=== PATIENT | female | born 1980 | race African-American/Black ===

== ENCOUNTER 2017-05-05 16:16 | Emergency (ER) | payer BC ==
--- NOTE | 2017-05-05 17:15 | ER Document Report ---
ED Medical Screen (RME) - General Chief Complaint: Nausea/Vomiting/Diarrhea Stated Complaint: VOMITING Time Seen by Provider: 05/05/17 17:12 Mode of Arrival: Ambulatory Information source: Patient Notes: 36-year-old female with a history of colitis that presents today with complaints of two days of diarrhea with associated vomiting. Patient does mention that she recently finished a course of amoxicillin secondary to a dental extraction. Patient denies any fevers. TRAVEL OUTSIDE OF THE [place] IN LAST 30 DAYS: No - Related Data Allergies/Adverse Reactions: No Known Allergies Allergy (Verified 04/02/16 12:47) Past Medical History - General Information source: [facility] Records GI Medical History: Reports: Other - Hx colitis Past Surgical History: Reports: Hx Gynecologic Surgery - uterine cyst, Hx Oral Surgery, Hx Tonsillectomy - Immunizations Hx Diphtheria, Pertussis, Tetanus Vaccination: Yes Review of Systems - Review of Systems Constitutional: denies: Fever Gastrointestinal: See HPI, Diarrhea, Nausea, Vomiting Physical Exam - Vital signs Vitals: Temp Pulse Resp BP Pulse Ox 99.0 F 97 16 147/88 H 98 05/05/17 16:25 05/05/17 16:25 05/05/17 16:25 05/05/17 16:25 05/05/17 16:25 - Respiratory Respiratory status: No respiratory distress Chest status: Nontender Breath sounds: Normal - Cardiovascular Rhythm: Regular Heart sounds: Normal auscultation Murmur: No - Abdominal Inspection: Obese Distension: No distension Bowel sounds: Normal Tenderness: Nontender Course - Vital Signs Vital signs: Temp Pulse Resp BP Pulse Ox 99.0 F 97 16 147/88 H 98 05/05/17 16:25 05/05/17 16:25 05/05/17 16:25 05/05/17 16:25 05/05/17 16:25 - Laboratory Result Diagrams: 05/05/17 18:00 05/05/17 18:00 Scribe Documentation - Scribe Written by Vivian:: Vivian Obrien, 05/05/2017 1822 acting as scribe for :: Ari
[2017-05-05] MEDS ORDERED: ONDANSETRON HCL INJ/PF 4 MG/2 ML SDV IV ONE ×2 (17:18→20:19)
[2017-05-05] MEDS ORDERED: NORMAL SALINE 1000 ML 1,000 ML IV ONE (17:18)
[2017-05-05] MEDS ORDERED: KETOROLAC TROMETHAMINE INJ/PF 30 MG/1 ML SDV IV ONE (18:00)
[2017-05-05 18:14] LABS: ABSOLUTE BASOPHILS # (AUTO) 0.1 10^3/uL (0.0-0.2); ABSOLUTE LYMPHOCYTES (AUTO) 1.4 10^3/uL (0.5-4.7); ABSOLUTE MONOCYTES (AUTO) 0.5 10^3/uL (0.1-1.4); ABSOLUTE NEUT (AUTO) 6.9 10^3/uL (1.7-8.2); BASOPHILS % (AUTO) 0.9 % (0-2); EOSINOPHILS % (AUTO) 0.1 % (0-6); HEMATOCRIT 36.9 % (36.0-47.0); HEMOGLOBIN 12.3 g/dL (12.0-15.5); LYMPHOCYTES % (AUTO) 15.9 % (13-45); MEAN CORPUSCULAR HEMOGLOBIN 29.9 pg (27.0-33.4); MEAN CORPUSCULAR HGB CONC 33.2 g/dL (32.0-36.0); MEAN CORPUSCULAR VOLUME 90 fl (80-97); MONOCYTES % (AUTO) 5.7 % (3-13); PLATELET COUNT 349 10^3/uL (150-450); SEGMENTED NEUTROPHILS % (AUTO) 77.4 % (42-78); TOTAL CELLS COUNTED % (AUTO) 100 %; WHITE BLOOD COUNT 8.9 10^3/uL (4.0-10.5)
[2017-05-05 18:31] LABS: ALANINE AMINOTRANSFERASE 30 U/L (9-52); ALBUMIN 4.5 g/dL (3.5-5.0); ALKALINE PHOSPHATASE 71 U/L (38-126); ANION GAP 10 (5-19); ASPARTATE AMINO TRANSFERASE 26 U/L (14-36); BILIRUBIN,DIRECT 0.3 mg/dL (0.0-0.4); BILIRUBIN,TOTAL 0.5 mg/dL (0.2-1.3); BLOOD UREA NITROGEN 8 mg/dL (7-20); CALCIUM 9.8 mg/dL (8.4-10.2); CARBON DIOXIDE 26 mmol/L (22-30); CHLORIDE 105 mmol/L (98-107); GLUCOSE 104 mg/dL (75-110); POTASSIUM 4.2 mmol/L (3.6-5.0); SODIUM 141.4 mmol/L (137-145); TOTAL PROTEIN 8.3 g/dL (6.3-8.2)
[2017-05-05] MEDS ORDERED: ACETAMINOPHEN 325 MG TABLET PO ONE (19:37)
[2017-05-05] MEDS ORDERED: ONDANSETRON HCL INJ/PF 4 MG/2 ML SDV ONE (20:17)
[2017-05-05] MEDS ORDERED: ONDANSETRON ODT 4 MG TAB (6 TAB/ER DISP) PO PRN (20:19)
--- NOTE | 2017-05-05 20:24 | ER Document Report ---
ED General - General Chief Complaint: Nausea/Vomiting/Diarrhea Stated Complaint: VOMITING Time Seen by Provider: 05/05/17 17:12 Mode of Arrival: Ambulatory Notes: Patient is a 36-year-old female without past medical history who presents with 24 hours of nausea, vomiting and diarrhea. She states that the symptoms started abruptly have been overall unchanged since onset. Nothing improves or worsens her symptoms. She denies any history of similar symptoms in the past. No known sick contacts. She has not seen her primary doctor regarding today's concerns. She notes that she has had some intermittent, moderate, dull, cramping pain generalized in her abdomen. She notes that this pain is typically only present prior to having a diarrheal bowel movement and then resolves. She denies any pain at time of my assessment. She denies any dysuria , vaginal bleeding, headache, neck pain, cough or sputum production TRAVEL OUTSIDE OF THE [place] IN LAST 30 DAYS: No - Related Data Allergies/Adverse Reactions: No Known Allergies Allergy (Verified 04/02/16 12:47) Past Medical History - General Information source: [facility] Records - Social History Smoking Status: Never Smoker Chew tobacco use (# tins/day): No Frequency of alcohol use: None Drug Abuse: None Lives with: Family Family History: Hypertension Patient has suicidal ideation: No Patient has homicidal ideation: No Renal/ Medical History: Denies: Hx Peritoneal Dialysis GI Medical History: Reports: Other - Hx colitis Past Surgical History: Reports: Hx Gynecologic Surgery - uterine cyst, Hx Oral Surgery, Hx Tonsillectomy - Immunizations Hx Diphtheria, Pertussis, Tetanus Vaccination: Yes Review of Systems - Review of Systems Notes: Constitutional: Negative for fever. HENT: Negative for sore throat. Eyes: Negative for visual changes. Cardiovascular: Negative for chest pain. Respiratory: Negative for shortness of breath. Gastrointestinal: Positive for abdominal cramping, vomiting and diarrhea. Genitourinary: Negative for dysuria. Musculoskeletal: Negative for back pain. Skin: Negative for rash. Neurological: Negative for headaches, weakness or numbness. 10 point ROS negative except as marked above and in HPI. Physical Exam - Vital signs Vitals: Temp Pulse Resp BP Pulse Ox 99.0 F 97 16 147/88 H 98 05/05/17 16:25 05/05/17 16:25 05/05/17 16:25 05/05/17 16:25 05/05/17 16:25 Interpretation: Normal Notes: PHYSICAL EXAMINATION: GENERAL: Well-appearing, well-nourished and in no acute distress. HEAD: Atraumatic, normocephalic. EYES: Pupils equal round and reactive to light, extraocular movements intact, sclera anicteric, conjunctiva are normal. ENT: nares patent, oropharynx clear without exudates. Mildly dry mucous membranes. NECK: Normal range of motion, supple without lymphadenopathy LUNGS: Breath sounds clear to auscultation bilaterally and equal. No wheezes rales or rhonchi. HEART: Regular rate and rhythm without murmurs ABDOMEN: Soft, nontender, normoactive bowel sounds. No guarding, no rebound. No masses appreciated. EXTREMITIES: Normal range of motion, no pitting or edema. No cyanosis. NEUROLOGICAL: No focal neurological deficits. Moves all extremities spontaneously and on command. PSYCH: Normal mood, normal affect. SKIN: Warm, Dry, normal turgor, no rashes or lesions noted. Course - Re-evaluation Re-evalutation: 05/05/17 20:21 Presentation of an overall well-appearing patient in no acute distress with complaints of nausea, vomiting, diarrhea. This is consistent with likely viral gastroenteritis. Patient has no abdominal tenderness on exam and specifically no tenderness in the RLQ, LLQ, RUQ. Overall well hydrated on exam. Able to tolerate oral intake here in the emergency department. Low clinical suspicion for any acute life-threatening etiology based on exam and history including acute cholecystitis, SBO, appendicitis, nephrolithiasis, or pylonephritis. CMP without evidence of acute hepatitis or significant dehydration. At this time will discharge with return precautions and follow-up recommendations. Verbal discharge instructions given a the bedside and opportunity for questions given. Medication warnings reviewed. Patient is in agreement with this plan and has verbalized understanding of return precautions and the need for primary care follow-up in the next 24-72 hours. - Vital Signs Vital signs: Temp Pulse Resp BP Pulse Ox 99.0 F 89 16 135/78 H 97 05/05/17 16:25 05/05/17 20:59 05/05/17 20:59 05/05/17 20:59 05/05/17 20:59 - Laboratory Result Diagrams: 05/05/17 18:00 05/05/17 18:00 Laboratory results interpreted by me: 05/05/17 18:00 Total Protein 8.3 H Discharge - Discharge Clinical Impression: Nausea vomiting and diarrhea, Abdominal cramping Condition: Good Disposition: HOME, SELF-CARE Additional Instructions: Your symptoms are likely due to a viral illness and should resolve in the next several days. You can take [id number] loperamide also known as Imodium as needed for diarrhea per box instructions. Continue to stay hydrated with plenty of solution such as Gatorade or Pedialyte. You are being prescribed Zofran to take as needed for nausea and vomiting. Please return if you develop severe abdominal pain, pass out, become unable to tolerate any oral fluids for 12 more hours, or any other symptoms that are concerning to you. Referrals: MARELY ROOT MD [Primary Care Provider] - Follow up as needed
[2017-05-05 21:01] VITALS: BP 135/78
== END 2017-05-05 21:01 | disposition home or self-care (01) ==
LOC: ER 16:16
DX: R11.2 Nausea with vomiting, unspecified (principal); R19.7 Diarrhea, unspecified; R10.84 Generalized abdominal pain
CPT/HCPCS: 99284; 36415; 83690; 84703; 85025; 80053; J1885; J2405; J7030

== ENCOUNTER → 2018-02-13 | Outpatient (CLI) | payer BC ==
--- NOTE | 2018-02-13 16:38 | RADIOLOGY REPORT (SQ) ---
EXAM DESCRIPTION: U/S THYROID/SFT TISS HD NECK COMPLETED DATE/TIME: 02/13/2018 4:28 pm REASON FOR STUDY: HYPOTHYROIDISM E03.9 HYPOTHYROIDISM, UNSPECIFIED COMPARISON: None. TECHNIQUE: Dynamic and static adams-scale images acquired of the thyroid gland. Selected additional c olor/power Doppler images recorded. All images stored to PACS. LIMITATIONS: None. FINDINGS: RIGHT LOBE: Normal size. Homogeneous echotexture. Small heterogenous nodule in the infer ior right lobe measuring 7 mm. LEFT LOBE: Normal size. Homogeneous echotexture. No cystic or solid masses. ISTHMUS: Normal size. Homogeneous echotexture. No cystic or solid masses. OTHER: No other significant finding. IMPRESSION: SMALL 7 MM NODULE IN THE RIGHT LOBE OF THE THYROID. TECHNICAL DOCUMENTATION: JOB ID: [id number] [employer]- All Rights Reserved Reading location - IP/workstation name: [email or web address]
== END ==
LOC: RAD 15:55
PROVIDERS: ATTEND Physician Assistant
DX: E03.9 Hypothyroidism, unspecified (principal); E04.1 Nontoxic single thyroid nodule
CPT/HCPCS: 76536

== ENCOUNTER 2018-12-26 03:41 | Emergency (ER) | payer BC ==
--- NOTE | 2018-12-26 04:09 | ER Document Report ---
ED GI/ - General Stated Complaint: VOMITING AND PAIN Time Seen by Provider: 12/26/18 04:08 Primary Care Provider: HEALTH,EMPLOYEE [ACTIVE STAFF] - Follow up as needed Mode of Arrival: Ambulatory Information source: Patient Notes: HISTORY OF PRESENT ILLNESS: Patient is a 38-year-old female with a past medical history of irregular menses who presents with lower abdominal cramping with uncontrollable vomiting that began 1 day ago with the onset of her menstrual cycle. Patient denies vaginal discharge, no fevers or chills, reports this is a regular occurrence with the onset of her cycle. Location: Abdomen Onset: Vaginal Provocation: Menstruation Quality: Pain Radiation: None Severity: Moderate at worst, currently mild Timing: Intermittent LMP: Started 1 day ago Associated symptoms: Denies fevers or chills, no cough or congestion, no diarrhea or constipation, no vaginal discharge REVIEW OF SYSTEMS: CONSTITUTIONAL : Denies fever or chills, no sweats. Denies recent illness. EENT: Denies eye, ear, throat, or mouth pain or symptoms. Denies nasal or sinus congestion. CARDIOVASCULAR: Denies chest pain. RESPIRATORY: Denies cough, cold, or chest congestion. Denies shortness of breath, difficulty breathing, or wheezing. GASTROINTESTINAL: Denies abdominal pain. Denies nausea, vomiting, or diarrhea. Denies constipation. GENITOURINARY: Denies difficulty urinating, painful urination, burning, frequency, or blood in urine. Positive for vaginal bleeding. MUSCULOSKELETAL: Denies neck or back pain or joint pain or swelling. SKIN: Denies rash or skin lesions. HEMATOLOGIC : Denies easy bruising or bleeding. LYMPHATIC: Denies swollen, enlarged glands. NEUROLOGICAL: Denies altered mental status or loss of consciousness. Denies headache. Denies weakness or paralysis or loss of use of either side. Denies problems with gait or speech. Denies sensory or motor loss. PSYCHIATRIC: Denies anxiety or stress or depression. All other systems reviewed and negative. PHYSICAL EXAMINATION: GENERAL: Well-appearing, well-nourished and in no acute distress. HEAD: Atraumatic, normocephalic. No scalp deformity, depression, or crepitance. EYES: Pupils are 3 mm and equal/round/reactive to light, extraocular movements intact, sclera anicteric, conjunctiva are normal. ENT: Nares patent bilaterally, oropharynx clear without exudates or palatal petechia. Moist mucous membranes. No tonsil hypertrophy. NECK: Normal range of motion, supple without lymphadenopathy. LUNGS: Breath sounds present, equal, and clear to auscultation bilaterally. No wheezes, rales, or rhonchi. HEART: Regular rate and rhythm without murmurs, rubs, or gallops. 2+ peripheral pulses. Normal capillary refill. ABDOMEN: Soft, nondistended. Mild diffuse tenderness in the lower abdomen. Nor moactive bowel sounds. No guarding, no rebound. No masses appreciated. BACK: Normal contour, no midline tenderness. Rectal exam deferred. PELVC: Deferred. EXTREMITIES: Normal range of motion, no pitting or edema. No cyanosis. NEUROLOGICAL: No focal neurological deficits. Moves all extremities spo ntaneously and on command. PSYCH: Normal mood, normal affect. No suicidal thoughts/ideations. No h omicidal thoughts/ideations. No hallucinations. SKIN: Warm, dry, normal turgor, no rashes or lesions noted. ASSESSMENT AND PLAN: This patient is a 38-year-old female who presents with abdominal cramping with vomiting in the setting of starting her menstrual cycle. 1. Will obtain CBC, give IV fluids with Zofran, and reassess. 2. Will anticipate discharge if the patient improves by the morning. TRAVEL OUTSIDE OF THE [place] IN LAST 30 DAYS: No - HPI Patient complains to provider of: Abdominal pain, Vaginal bleeding, Vomiting Onset: Yesterday Timing/Duration: Gradual Quality of pain: Achy Severity at maximum: Moderate Severity in ED: Mild Pain Level: 1 Context: Other - Currently menstruating Location: Other - Diffuse lower abdomen Vaginal bleeding (Compared to normal period): Heavier Menstrual period history: Abnormal OB ultrasound done: No vitamins taken: No Sexual history: Active Associated symptoms: Nausea, Vomiting Exacerbated by: Denies Relieved by: Denies Similar symptoms previously: No Recently seen / treated by doctor: No - Related Data Allergies/Adverse Reactions: No Known Allergies Allergy (Verified 04/02/16 12:47) Past Medical History - General Information source: Patient - Social History Smoking Status: Never Smoker Chew tobacco use (# tins/day): No Frequency of alcohol use: None Drug Abuse: None Lives with: Alone Family History: Hypertension Patient has suicidal ideation: No Patient has homicidal ideation: No - Past Medical History Cardiac Medical History: Reports: None Pulmonary Medical History: Reports: None EENT Medical History: Reports: None Neurological Medical History: Reports: None Endocrine Medical History: Reports: None Renal/ Medical History: Reports: None. Denies: Hx Peritoneal Dialysis Malignancy Medical History: Reports: None GI Medical History: Reports: None Musculoskeletal Medical History: Reports None Skin Medical History: Reports None Psychiatric Medical History: Reports: None Traumatic Medical History: Reports: None Infectious Medical History: Reports: None Past Surgical History: Reports: Hx Gynecologic Surgery - uterine cyst, Hx Oral Surgery, Hx Tonsillectomy - Immunizations Hx Diphtheria, Pertussis, Tetanus Vaccination: Yes Review of Systems - Review of Systems Constitutional: No symptoms reported EENT: No symptoms reported Cardiovascular: No symptoms reported Respiratory: No symptoms reported Gastrointestinal: See HPI, Nausea, Vomiting Genitourinary: No symptoms reported Female Genitourinary: See HPI, Vaginal bleeding Musculoskeletal: No symptoms reported Skin: No symptoms reported Hematologic/Lymphatic: No symptoms reported Neurological/Psychological: No symptoms reported -: Yes All other systems reviewed and negative Physical Exam - Vital signs Vitals: Temp Pulse Resp BP Pulse Ox 99.1 F 93 18 121/83 95 12/26/18 04:00 12/26/18 04:00 12/26/18 04:00 12/26/18 04:00 12/26/18 04:00 Interpretation: Normal Course - Re-evaluation Re-evalutation: 12/26/18 06:14 CBC is grossly unremarkable. Will discharge the patient home with strict return precautions and follow-up with primary care. All results were explained to and discussed with the patient, and all questions addressed and answered for the patient. The patient voices both understanding and agreeing with the plan. - Vital Signs Vital signs: Temp Pulse Resp BP Pulse Ox 99.1 F 93 18 121/83 95 12/26/18 04:00 12/26/18 04:00 12/26/18 04:00 12/26/18 04:00 12/26/18 04:00 - Laboratory Result Diagrams: 12/26/18 04:45 Laboratory results interpreted by me: 12/26/18 04:45 Hgb 11.4 L Hct 34.9 L Discharge - Discharge Clinical Impression: Gastritis Qualifiers: Gastritis type: unspecified gastritis Chronicity: acute Gastritis bleeding: without bleeding Qualified Code(s): K29.00 - Acute gastritis without bleeding Condition: Good Disposition: HOME, SELF-CARE Instructions: Nausea or Vomiting, Nonspecific ([facility]) Additional Instructions: You have been seen in the ED for vomiting, most likely related to your menstrual cycle. Please follow-up with your primary doctor. Return to the Emergency Department if your bleeding gets worse, you have uncontrollable vomiting, or have any other concerning symptoms. Prescriptions: Metoclopramide HCl [Reglan 10 mg Tablet] 10 mg PO Q8HP PRN #30 tablet PRN Reason: For Nausea/Vomiting Diclofenac Sodium 75 mg PO BID #30 tablet. Referrals: HEALTH,EMPLOYEE [ACTIVE STAFF] - Follow up as needed Print Language: Swedish
[2018-12-26] MEDS ORDERED: ONDANSETRON HCL INJ/PF 4 MG/2 ML SDV IV ONE (04:45)
[2018-12-26] MEDS ORDERED: NORMAL SALINE 1000 ML 1,000 ML IV ONE (04:45)
[2018-12-26 04:58] LABS: ABSOLUTE BASOPHILS # (AUTO) 0.1 10^3/uL (0.0-0.2); ABSOLUTE LYMPHOCYTES (AUTO) 1.6 10^3/uL (0.5-4.7); ABSOLUTE MONOCYTES (AUTO) 0.6 10^3/uL (0.1-1.4); ABSOLUTE NEUT (AUTO) 5.5 10^3/uL (1.7-8.2); BASOPHILS % (AUTO) 0.8 % (0-2); EOSINOPHILS % (AUTO) 0.6 % (0-6); HEMATOCRIT 34.9 % (36.0-47.0); HEMOGLOBIN 11.4 g/dL (12.0-15.5); LYMPHOCYTES % (AUTO) 20.7 % (13-45); MEAN CORPUSCULAR HEMOGLOBIN 28.6 pg (27.0-33.4); MEAN CORPUSCULAR HGB CONC 32.6 g/dL (32.0-36.0); MEAN CORPUSCULAR VOLUME 88 fl (80-97); MONOCYTES % (AUTO) 7.4 % (3-13); PLATELET COUNT 317 10^3/uL (150-450); RED BLOOD COUNT 3.98 10^6/uL (3.72-5.28); RED CELL DISTRIBUTION WIDTH 13.3 % (11.5-14.0); SEGMENTED NEUTROPHILS % (AUTO) 70.5 % (42-78); TOTAL CELLS COUNTED % (AUTO) 100 %; WHITE BLOOD COUNT 7.8 10^3/uL (4.0-10.5)
[2018-12-26 07:03] VITALS: BP 122/72
== END 2018-12-26 06:30 | disposition home or self-care (01) ==
LOC: ER 03:41
DX: K29.00 Acute gastritis without bleeding (principal); R11.10 Vomiting, unspecified; R10.30 Lower abdominal pain, unspecified
CPT/HCPCS: 36415; 85025; J2405; J7030

== ENCOUNTER 2019-02-16 01:06 | Emergency (ER) | payer BC ==
[2019-02-16] MEDS ORDERED: NORMAL SALINE 500 ML IV ONE (02:27)
[2019-02-16] MEDS ORDERED: KETOROLAC TROMETHAMINE INJ/PF 30 MG/1 ML SDV IV ONE (02:44)
[2019-02-16] MEDS ORDERED: MORPHINE SULFATE 10 MG/ML INJ IV ONE (02:44)
[2019-02-16] MEDS ORDERED: ONDANSETRON HCL INJ/PF 4 MG/2 ML SDV IV ONE (02:44)
[2019-02-16 02:54] LABS: ABSOLUTE BASOPHILS # (AUTO) 0.1 10^3/uL (0.0-0.2); ABSOLUTE MONOCYTES (AUTO) 0.4 10^3/uL (0.1-1.4); ABSOLUTE NEUT (AUTO) 5.4 10^3/uL (1.7-8.2); BASOPHILS % (AUTO) 0.8 % (0-2); EOSINOPHILS % (AUTO) 0.3 % (0-6); HEMOGLOBIN 11.8 g/dL (12.0-15.5); LYMPHOCYTES % (AUTO) 14.5 % (13-45); MEAN CORPUSCULAR HGB CONC 32.9 g/dL (32.0-36.0); MEAN CORPUSCULAR VOLUME 88 fl (80-97); MONOCYTES % (AUTO) 6.4 % (3-13); PLATELET COUNT 321 10^3/uL (150-450); RED BLOOD COUNT 4.08 10^6/uL (3.72-5.28); RED CELL DISTRIBUTION WIDTH 13.2 % (11.5-14.0); TOTAL CELLS COUNTED % (AUTO) 100 %; WHITE BLOOD COUNT 6.9 10^3/uL (4.0-10.5)
[2019-02-16 03:16] VITALS: BP 115/68
[2019-02-16 03:31] LABS: ADD MANUAL MICROSCOPIC YES; APPEARANCE,URINE CLEAR; BILIRUBIN,URINE NEGATIVE (NEGATIVE); COLOR,URINE YELLOW; GLUCOSE, URINE NEGATIVE (NEGATIVE); KETONES,URINE NEGATIVE (NEGATIVE); LEUKOCYTE ESTERASE,URINE NEGATIVE (NEGATIVE); NITRITE,URINE NEGATIVE (NEGATIVE); PROTEIN,URINE 30 mg/dL (NEGATIVE); URINE SPECIFIC GRAVITY 1.019; UROBILINOGEN,URINE NEGATIVE mg/dL (<2.0)
[2019-02-16 03:32] LABS: BACTERIA,URINE TRACE /HPF
[2019-02-16 03:41] LABS: ALBUMIN 4.4 g/dL (3.5-5.0); ALKALINE PHOSPHATASE 74 U/L (38-126); ANION GAP 11 (5-19); ASPARTATE AMINO TRANSFERASE 26 U/L (14-36); BILIRUBIN,DIRECT 0.3 mg/dL (0.0-0.4); BILIRUBIN,TOTAL 0.5 mg/dL (0.2-1.3); BLOOD UREA NITROGEN 12 mg/dL (7-20); CALCIUM 9.5 mg/dL (8.4-10.2); CARBON DIOXIDE 24 mmol/L (22-30); CHLORIDE 108 mmol/L (98-107); GLUCOSE 111 mg/dL (75-110); POTASSIUM 4.6 mmol/L (3.6-5.0); TOTAL PROTEIN 8.3 g/dL (6.3-8.2)
--- NOTE | 2019-02-16 03:51 | ER Document Report ---
ED General - General Chief Complaint: Abdominal Pain Stated Complaint: ABDOMINAL PAIN Time Seen by Provider: 02/16/19 02:36 Primary Care Provider: MARELY ROOT MD [Primary Care Provider] - Follow up as needed TRAVEL OUTSIDE OF THE [place] IN LAST 30 DAYS: No - HPI Notes: Patient is a very pleasant 38-year-old female who presents emergency department for evaluation of pain in her right pelvic area with nausea and vomiting. She states the pain started José night. She states that it has coincided with her menstruation. She is had pain similar to this in the past. She states she always had pain with menstruation like this for the first few days, but over the last 8 months she really did not have any. She states last month her pain started again. Her pain was sharp and stabbing, with a constant dull ache, this evening. She had nausea with 2 episodes of emesis. She is been trying to keep down her medications without any significant relief. She denies any fevers or chills. Normal bowel movements. Normal urination. No vaginal discharge. - Related Data Allergies/Adverse Reactions: No Known Allergies Allergy (Verified 04/02/16 12:47) Home Medications: Diclofenac Past Medical History - General Information source: Patient - Social History Smoking Status: Never Smoker Family History: Hypertension Patient has suicidal ideation: No Patient has homicidal ideation: No Renal/ Medical History: Denies: Hx Peritoneal Dialysis Past Surgical History: Reports: Hx Gynecologic Surgery - uterine cyst, Hx Oral Surgery, Hx Tonsillectomy - Immunizations Hx Diphtheria, Pertussis, Tetanus Vaccination: Yes Review of Systems - Review of Systems Constitutional: No symptoms reported EENT: No symptoms reported Cardiovascular: No symptoms reported Respiratory: No symptoms reported Gastrointestinal: See HPI Genitourinary: No symptoms reported Female Genitourinary: See HPI Musculoskeletal: No symptoms reported Skin: No symptoms reported Neurological/Psychological: No symptoms reported Physical Exam - Vital signs Vitals: Temp Pulse Resp BP Pulse Ox 98.5 F 87 18 145/81 H 99 02/16/19 01:11 EST 02/16/19 01:11 EST 02/16/19 01:11 EST 02/16/19 01:11 EST 02/16/19 01:11 EST - Notes Notes: Is a 38-year-old female who appears her stated age, no acute distress. She is awake and alert, cooperative with examiner. Vital signs reviewed, please refer to chart. Head is normocephalic, atraumatic. Pupils equal round, reactive to light. Neck is supple without meningismus. Heart is regular rate and rhythm. Lungs are clear to auscultation bilaterally. Abdomen is soft, moderately tender in the right pelvis without rebound or guarding, normoactive bowel sounds throughout. Extremities without cyanosis, clubbing. Posterior calves are nontender. Peripheral pulses are equal. Skin is warm and dry. Patient is awake, alert, neurological exam is nonfocal. Course - Re-evaluation Re-evalutation: 02/16/19 03:50 Patient presents emergency department for evaluation. She is in significant amount of discomfort. She is medicated. Lab investigations obtained. My primary concern would be an ovarian torsion in this patient. Imaging ordered, we will continue to monitor. 02/16/19 05:32 Serial abdominal exams are tender but nonsurgical. Laboratory investigations are unremarkable. Imaging was not conclusive in regards to her right ovary, but her pain is significantly improved and she does not have a surgical abdomen. Patient feels improved and feels comfortable with being discharged. She is sent home with Abhijit Lind, referral on to OB. She is to return to the ED with worsening. - Vital Signs Vital signs: Temp Pulse Resp BP Pulse Ox 97.4 F 66 18 115/68 99 02/16/19 03:14 02/16/19 03:14 02/16/19 03:14 02/16/19 03:14 02/16/19 01:11 EST - Laboratory Result Diagrams: 02/16/19 02:43 02/16/19 02:43 Laboratory results interpreted by me: 02/16/19 02/16/19 02/16/19 02:43 02:43 02:58 Hgb 11.8 L Chloride 108 H Glucose 111 H Total Protein 8.3 H Urine Protein 30 H Discharge - Discharge Clinical Impression: Pelvic pain, Nausea and vomiting Condition: Stable Disposition: HOME, SELF-CARE Instructions: Pelvic Pain ([facility]), Vomiting ([facility]) Additional Instructions: No clear cause was found for your pain today. Take medications as needed for pain and nausea. Follow-up with SENIOR TECHNICAL PROGRAM MANAGER. Return to the emergency department with worsening or new concerning symptoms of any sort. Referrals: MARELY ROOT MD [Primary Care Provider] - Follow up as needed
--- NOTE | 2019-02-16 04:53 | RADIOLOGY REPORT (SQ) ---
CLINICAL HISTORY: right pelvic pain, eval for torsion COMPARISON: 04/11/2012. TECHNIQUE: US PELVIS TRANSVAGINAL on 02/16/2019 2:44 AM SNUFF GRINDER FINDINGS: Uterus measures 15.1 cm and contains fibroids, the largest of which measures 7.8 cm. The endometrium is not well seen. Cervix measures 2.3 cm and contains small nabothian cysts. Right ovary is not visualized. Left ovary measures 3.5 x 2 0.5 to 2.8 cm and is normal in echotexture with patent flow. There is a vague cystic temporal tubular structure in the right adnexa which is indeterminate.. IMPRESSION: No evidence of torsion.
[2019-02-16] MEDS ORDERED: HYDROCODONE/ACETAMINOPHEN 5-325 MG (6 TAB/ER DISP) PO PRN (05:32)
[2019-02-16] MEDS ORDERED: ONDANSETRON ODT 4 MG TAB (6 TAB/ER DISP) PO PRN (05:32)
== END 2019-02-16 06:32 | disposition home or self-care (01) ==
LOC: ER 01:06
DX: R10.2 Pelvic and perineal pain (principal); R11.2 Nausea with vomiting, unspecified; R10.9 Unspecified abdominal pain
CPT/HCPCS: 99284; 96361; 96374; 96375; 36415; 83690; 85025; 81025; 80053; 81001; 76830; 93976; J1885; J2270; J2405; J7040

== ENCOUNTER → 2019-04-03 | Outpatient (CLI) | payer BC ==
--- NOTE | 2019-04-04 01:24 | XCELERA REPORT ---
[address] [address] Transthoracic Echocardiogram Report Name: LEONEL ARANGO Age: 38 yrs Gender: Female : 1980 Patient Status: Outpatient Patient Location: Study Date: 04/03/2019 01:09 PM Height: 67 in Weight: 290 lb BSA: 2.4 m2 Procedure: A complete two-dimensional transthoracic echocardiogram was performed (2D, M-mode, spectral and color flow Doppler). The study was technically adequate with some images being suboptimal in quality. Reason For Study: EDEMA Ordering Physician: ORXANA CRUZ Performed By: Maryse Baker Interpretation Summary The left ventricular ejection fraction is normal. The left ventricle is grossly normal size. There is borderline concentric left ventricular hypertrophy. Doppler measurements suggest pseudonormalized left ventricular relaxation, which is associated with grade II/IV or mild to moderate diastolic dysfunction Wall motion cannot be accurately commented on, but no definite regional wall motion abnormalities noted. The right ventricle is grossly normal size. The left atrial size is normal. The right atrium is normal in size There is a trace amount of mitral regurgitation There is no mitral valve stenosis. No aortic regurgitation is present. There is no aortic valve stenosis There is a trace or physiologic amount of tricuspid regurgitation Tricuspid regurgitation jet envelope not well defined to measure RV systolic pressure accurately. The aortic root is not well visualized but is probably normal size. The inferior vena cava appeared normal and decreased > 50% with respiration (RAP 5-10 mmHg) There is no pericardial effusion. MMode/2D Measurements & Calculations RVDd: 2.9 cm LVIDd: 4.9 cm FS: 31.4 % Ao root diam: 2.7 cm IVSd: 0.85 cm LVIDs: 3.3 cm EDV(Teich): 110.3 ml Ao root area: 5.7 cm2 LVPWd: 0.91 cm ESV(Teich): 45.1 ml EF(Teich): 59.1 % Doppler Measurements & Calculations MV E max olivier: MV dec slope: Ao V2 max: LV V1 max P.6 cm/sec 517.8 cm/sec2 144.2 cm/sec 4.0 mmHg MV A max olivier: MV dec time: 0.16 sec Ao max PG: LV V1 max: 51.3 cm/sec 8.4 mmHg 99.8 cm/sec MV E/A: 1.6 PA V2 max: 107.6 cm/sec PA max P.6 mmHg Left Ventricle The left ventricle is grossly normal size. There is borderline concentric left ventricular hypertrophy. The left ventricular ejection fraction is normal. Doppler measurements suggest pseudonormalized left ventricular relaxation, which is associated with grade II/IV or mild to moderate diastolic dysfunction. Wall motion cannot be accurately commented on, but no definite regional wall motion abnormalities noted. Right Ventricle The right ventricle is grossly normal size. The right ventricular systolic function is normal. Atria The right atrium is normal in size. The left atrial size is normal. Interarterial septum not well visualized and not well dopplered. Cannot comment on ASD/PFO presence. Mitral Valve The mitral valve is grossly normal. There is no mitral valve stenosis. There is a trace amount of mitral regurgitation. Aortic Valve The aortic valve is grossly normal. There is no aortic valve stenosis. No aortic regurgitation is present. Tricuspid Valve The tricuspid valve is not well visualized, but is grossly normal. There is no tricuspid stenosis. There is a trace or physiologic amount of tricuspid regurgitation. Tricuspid regurgitation jet envelope not well defined to measure RV systolic pressure accurately. Pulmonic Valve The pulmonic valve is not well visualized. Great Vessels The aortic root is not well visualized but is probably normal size. The inferior vena cava appeared normal and decreased > 50% with respiration (RAP 5-10 mmHg). Effusions There is no pericardial effusion. : ROXANA CRUZ Shyamal
== END ==
LOC: SP 12:58
PROVIDERS: ATTEND Physician Assistant
DX: M79.89 Other specified soft tissue disorders (principal)
CPT/HCPCS: 93306

== ENCOUNTER → 2019-05-09 | Outpatient (CLI) | payer BC ==
--- NOTE | 2019-05-10 11:04 | RADIOLOGY REPORT (SQ) ---
EXAM DESCRIPTION: MRI LT LOWER JOINT WITHOUT; MRI RT LOWER JOINT WITHOUT COMPLETED DATE/TIME: 05/09/2019 7:27 pm REASON FOR STUDY: M25.562 PAIN IN LEFT KNEE; M25.561 PAIN IN RIGHT KNEE M25.562 PAIN IN LEFT KNEE M 25.561 PAIN IN RIGHT KNEE COMPARISON: None. TECHNIQUE: Bilateralknee images acquired and stored on PACS. Multiplanar images include fat sensiti ve sequences as T1, water sensitive sequences as FST2 or STIR, cartilage sensitive sequences as FSPD, and gradient echo sequences. LIMITATIONS: None. FINDINGS: LEFT JOINT AND BURSAE: No significant effusion, trace fluid in the joint. Mild pretibial edema/bursitis w ith regional small venous varices along the anterior knee. BONE CORTEX AND MARROW: No alteration of signal to suggest marrow replacement. No worrisome bone lesi ons. No occult fracture. ACL: Intact. No degeneration or ganglion cyst. PCL: Intact. MCL: Intact. No periligamentous edema or fluid. LCL: Intact. No periligamentous edema or fluid. MEDIAL MENISCUS: Mild suspected degenerative signal in the posterior horn. Doubt tear. LATERAL MENISCUS: No tears. No abnormal signal. MEDIAL COMPARTMENT: Mild generalized cartilage thinning without focal lesions or reactive bone change . LATERAL COMPARTMENT: Cartilage preserved. No bone bruises or reactive marrow edema. No osteophytes. PATELLA: Chondral thinning, most notable near the patellar apex. No full-thickness defects or reacti ve bone change. EXTENSOR MECHANISM: Intact. Quadriceps and patella tendons normal. SOFT TISSUES: As above. Appropriate vascular flow voids. No significant popliteal cyst. OTHER: No other significant finding. RIGHT JOINT AND BURSAE: No effusion. BONE CORTEX AND MARROW: No alteration of signal to suggest marrow replacement. No worrisome bone lesi ons. No occult fracture. ACL: Intact. No degeneration or ganglion cyst. PCL: Intact. MCL: Intact. No periligamentous edema or fluid. LCL: Intact. No periligamentous edema or fluid. MEDIAL MENISCUS: Suspect mild degenerative signal in the posterior horn. No evidence of overt tear. LATERAL MENISCUS: No tears. No abnormal signal. MEDIAL COMPARTMENT: Cartilage preserved. No bone bruises or reactive marrow edema. No osteophytes. LATERAL COMPARTMENT: Cartilage preserved. No bone bruises or reactive marrow edema. No osteophytes. PATELLA: Chondral thinning. No focal full-thickness defects or reactive bone changes appreciated. EXTENSOR MECHANISM: Intact. Quadriceps and patella tendons normal. SOFT TISSUES: Trace popliteal cyst. Appropriate vascular flow voids. OTHER: No other significant finding. IMPRESSION: 1. Relatively similar appearance of changes in the bilateral knees. 2. 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 3. RIGHT knee with evidence of degenerative signal in the medial meniscus, chondromalacia patella wit hout grade 4 lesion. TECHNICAL DOCUMENTATION: JOB ID: [id number] [employer]- All Rights Reserved Reading location - IP/workstation name: CLIENT APPLICATION SUPPORT [email or web address]
== END ==
LOC: RAD 17:37
PROVIDERS: ATTEND Orthopaedic Surgery
DX: M25.562 Pain in left knee (principal); M25.561 Pain in right knee